=== PATIENT | female | born 1955 | race Caucasian/White ===

== ENCOUNTER 2020-11-17 09:30 | Emergency (ER) | payer OTHER ==
[2020-11-17] MEDS ORDERED: NORCO 5-325 TA1 EACH PO (11:33)
== END 2020-11-17 11:44 | disposition home or self-care (01) ==
LOC: FER 09:30
DX: S82.001A Unspecified fracture of right patella, initial encounter for closed fracture (principal); F17.200 Nicotine dependence, unspecified, uncomplicated; Z88.0 Allergy status to penicillin; W01.0XXA Fall on same level from slipping, tripping and stumbling without subsequent striking against object, initial encounter; Y92.009 Unspecified place in unspecified non-institutional (private) residence as the place of occurrence of the external cause
CPT/HCPCS: 73560; 99283